=== PATIENT | male | born 1960 | race Caucasian/White ===

== ENCOUNTER 2017-01-04 06:59 | Day surgery (SDC) | payer BC ==
[2017-01-04] MEDS ORDERED: fentaNYL 100 MCG/2 ML SDV ONE (07:24)
[2017-01-04] MEDS ORDERED: Midazolam 1 MG/ML 2 ML SDV ONE (07:24)
[2017-01-04] MEDS ORDERED: Propofol 200 MG/20 ML SDV ONE (07:24)
[2017-01-04] MEDS ORDERED: Sodium Chloride 0.9% 1,000 ML IV SCH (07:45)
[2017-01-04 09:33] VITALS: BP 117/90
--- NOTE | 2017-01-05 11:17 | OR ---
DATE OF PROCEDURE: 01/04/2017 PROCEDURE: Colonoscopy. FINDINGS: 1. Diverticulosis, mild, limited to sigmoid colon. 2. No other gross abnormalities. COMPLICATIONS: None. 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 PREOPERATIVE DIAGNOSIS: Screening colonoscopy. POSTOPERATIVE DIAGNOSIS: Screening colonoscopy. RISKS: Risks, benefits, alternatives, and limitations, including, but not limited to infection, bleeding, and perforation were explained and the patient wished to proceed. PROCEDURE IN DETAIL: The patient was placed in left lateral decubitus position. Digital rectal exam was performed without abnormality. The scope was introduced and advanced atraumatically to the ileocecal valve. The scope was brought back to the ascending, transverse, descending colon, and retroflexed. The patient had diverticulosis which would be described as mild and essentially limited to sigmoid colon. There were no polyps. No masses. No blood. No abnormalities on retroflexed. The patient tolerated the procedure well. Bill Baeza MD /[id number]
== END 2017-01-04 09:45 | disposition home or self-care (01) ==
LOC: JP.SDS 06:59
PROVIDERS: ATTEND Surgery
DX: Z12.11 Encounter for screening for malignant neoplasm of colon (principal); K57.30 Diverticulosis of large intestine without perforation or abscess without bleeding
CPT/HCPCS: 45378; J2250; J2704; J3010; J7040

== ENCOUNTER 2022-11-10 16:19 | Emergency (ER) | payer BC, OTHER ==
[2022-11-10 16:31] VITALS: BP 156/91; PULSE 70
[2022-11-10] MEDS ORDERED: Ketorolac 30 MG/ML SDV IVPUSH ONE (17:00)
[2022-11-10] MEDS ORDERED: Tamsulosin 0.4 MG Cap.ER PO ONE (18:05)
== END 2022-11-10 18:23 | disposition home or self-care (01) ==
LOC: JP.ED 16:19
DX: N13.2 Hydronephrosis with renal and ureteral calculous obstruction (principal); Z79.82 Long term (current) use of aspirin
CPT/HCPCS: 74176; 96374; 99283; A9270; J1885